=== PATIENT | female | born 1985 | race Caucasian/White ===

== ENCOUNTER 2017-05-21 15:28 | Emergency (ER) | payer MEDICAID ==
[2017-05-21] MEDS ORDERED: METOCLOPRAMIDE HCL 5 MG/ML VIAL IV ONE (15:42)
[2017-05-21] MEDS ORDERED: PROMETHAZINE HCL 12.5 MG in DEXTROSE 5 % IN WATER 50 ML IV ONE ×2 (15:42)
[2017-05-21] MEDS ORDERED: KETOROLAC TROMETHAMINE 30 MG/ML VIAL IV ONE (15:42)
--- NOTE | 2017-05-21 15:50 | ERNOTE ---
Headache ER HPI - Narrative Date of Service: 05/21/17 - General Presenting Symptoms: headache Time Seen by Provider: 05/21/17 15:39 Source: patient Exam Limitations: no limitations - Immun/Allergies/Home Medications Immunizations: IMMUNIZATION HX History of Influenza Vaccine Yes Allergies/Adverse Reactions: Allergies No Known Allergies Allergy (Verified 05/21/17 15:37) Home Medications: HOME MEDICATIONS NK [No Home Medication] 05/21/17 [Last Taken Unknown] - History of Present Illness Narrative: 32 yo WF with onset of headache two weeks ago. Headache was intermittent. She used ibuprofen which usually helps but last two days headache has intensified. Headache primary parietal-temporal. Timing of Headache: gradual, still present, intermittent Quality: Present: pressure, throbbing Severity Maximum: Present: severe Severity-Currently: Present: moderate Headache frequency: Present: chronic headaches Modifying Factors - (Worsens): Reports: movement, exposure to light Associated Symptoms: Reports: vision changes Exacerbated by:: Reports: light, noise, movement Prior Treament: Reports: other - Previously on fiorocet but has not used in over one year Review of Systems - Review of Systems Constitutional: Present: no symptoms reported EYE: Present: blurred vision ENT: Present: no symptoms reported Respiratory: Present: no symptoms reported Cardiology: Present: no symptoms reported Gastrointestinal/Abdominal: Present: no symptoms reported Musculoskeletal: Present: no symptoms reported - Patient's Past Medical History Patient History - Medical: No pertinent hx Patient History - Cardiac/Respiratory: No pertinent hx Patient History - Cancer: No Hx of Cancer Patient History - Surgical Procedures: Tubal Ligation Patient History - Other: None - Social History Living Situations: home Psych History: No pertinent hx Smoking Status: Current every day smoker - Immunizations History of Influenza Vaccine: Yes Physical Exam - Physical Exam General Appearance: Present: wd/wn, alert, mild distress, other - sitting in dark room. Hold her hands over her eyes when lights are on Head Exam: Present: normal inspection, no evidence of injury Eye Exam: PERRL: bilateral, EOMI: bilateral, Other: bilateral - minimal lateral gaze nystagmus Ears, Nose, Throat: Present: normal ENT inspection Neck: Present: normal inspection, nontender Respiratory: Present: no respiratory distress Cardiovascular/Chest: Present: regular rate, rhythm Gastrointestinal/Abdominal: Present: nontender, soft Neurological Exam: Present: alert, oriented, match maker II-XII nml as tested ED Progress - Vital Signs Patient's Vital Signs:: I have reviewed the patient's vital signs. Vital Signs: Vital Signs 05/21/17 15:33 Temperature 36.8 C Pulse Rate 95 Respiratory 12 Rate Blood Pressure 106/67 O2 Sat by Pulse 98 Oximetry - Progress/Reassessment Chief Complaint: Headache Progress:: Improved Progress Note-Subjective: 05/21/17 17:12 Headache very much improved. Plan - Plan Plan: Alternating ibuprofen with tylenol every 3 hours Follow up with PCP Departure Clinical Impression: Migraine - Departure Disposition: Home self-care Condition: Good Instructions: Recurrent Migraine Headache Additional Instructions: Use ibuprofen 600 mg alternating with tylenol 1000 mg every 3 hours for 48 hours Follow up with PCP.
[2017-05-21] MEDS ORDERED: METOCLOPRAMIDE HCL 5 MG/ML VIAL ONE (15:54)
[2017-05-21] MEDS ORDERED: KETOROLAC TROMETHAMINE 30 MG/ML VIAL ONE (15:54)
[2017-05-21] MEDS ORDERED: KETOROLAC TROMETHAMINE 30 MG/ML VIAL IM ONE (16:20)
[2017-05-21] MEDS ORDERED: METOCLOPRAMIDE HCL 5 MG/ML VIAL IM ONE (16:20)
[2017-05-21] MEDS ORDERED: PROMETHAZINE HCL 25 MG/ML AMPUL IM ONE (16:26)
[2017-05-21] MEDS ORDERED: PROMETHAZINE HCL 25 MG/ML AMPUL ONE (16:27)
[2017-05-21 16:58] VITALS: BP 112/78
== END 2017-05-21 17:15 | disposition home or self-care (01) ==
LOC: ER 15:28
DX: G43.909 Migraine, unspecified, not intractable, without status migrainosus (principal)

== ENCOUNTER 2017-06-14 13:04 | Emergency (ER) | payer MEDICAID ==
[2017-06-14 13:10] VITALS: BP 105/73
== END 2017-06-14 14:40 | disposition left against medical advice (07) ==
LOC: ER 13:04
DX: Z53.21 Procedure and treatment not carried out due to patient leaving prior to being seen by health care provider (principal)